=== PATIENT | male | born 1965 | race American Indian/Alaskan Native ===

== ENCOUNTER 2020-01-05 09:15 | Emergency (ER) | payer SELFPAY ==
[2020-01-05] MEDS ORDERED: ASPIRIN 325 MG TAB PO ONE (10:18)
--- NOTE | 2020-01-05 11:15 | XRay Report ---
CHEST 1 VIEW INDICATION: Chest Pain. COMPARISON: 10/05/2019 FINDINGS: Support devices: None. Heart: Within normal limits. Lungs/Pleura: No acute air space or interstitial disease. Additional findings: None. IMPRESSION: No acute findings. Signer Name: Edvin Dumont Jr, MD Signed: 01/05/2020 11:11 AM Workstation Name: [id number]
[2020-01-05 12:43] LABS: Basophils # (Auto) 0.1 K/mm3 (0.0-0.1); Basophils % (Auto) 0.7 % (0.0-1.8); Eosinophils % (Auto) 0.2 % (0.0-4.3); Hematocrit 42.2 % (35.5-45.6); Hemoglobin 14.3 gm/dl (11.8-15.2); Lymphocytes # (Auto) 2.3 K/mm3 (1.2-5.4); Lymphocytes % (Auto) 28.3 % (13.4-35.0); Mean Corpuscular HGB Conc 34 % (32-34); Mean Corpuscular Volume 88 fl (84-94); Monocytes # (Auto) 0.6 K/mm3 (0.0-0.8); Monocytes % (Auto) 7.7 % (0.0-7.3); Platelet Count 241 K/mm3 (140-440); Red Cell Distribution Width 14.1 % (13.2-15.2)
[2020-01-05 13:02] LABS: BUN/Creatinine Ratio 7; Blood Urea Nitrogen 10 mg/dL (9-20); Calcium 9.1 mg/dL (8.4-10.2); Hemolysis Index 7
[2020-01-05 15:03] LABS: INR 1.08 (0.87-1.13)
== END 2020-01-05 18:19 | disposition left against medical advice (07) ==
LOC: ED 09:15
DX: R07.89 Other chest pain (principal); Z53.21 Procedure and treatment not carried out due to patient leaving prior to being seen by health care provider
CPT/HCPCS: 36415; 71045; 80048; 84484; 85025; 85610; 93005